=== PATIENT | female | born 1995 | race Caucasian/White ===

== ENCOUNTER 2020-03-30 19:50 | Emergency (ER) | payer OTHER ==
[2020-03-30] MEDS ORDERED: Sodium Chloride 0.9% 1000 ML 1,000 ML IV STA (20:12)
[2020-03-30 20:30] LABS: Absolute Neutrophil Ct (ANC) 7.02 (1.4-6.9); BASOPHIL % 0.2 % (0.0-0.4); Basophil (Absolute #) 0.02 (0-0.4); Eosinophil % 0.7 % (0.00-5.0); Eosinophil (Absolute #) 0.08 (0-0.5); Hematocrit 37.7 % (35-47); Hemoglobin 12.6 gm/dl (12.0-16.0); Lymphocyte (Absolute #) 2.99 (1.0-4.6); Lymphocytes % 27.9 % (24.0-44.0); Mean Cell Volume 90.4 fl (78-100); Mean Corpuscular Hemoglobin 30.2 pg (26-32); Mean Corpuscular Hgb Concent. 33.4 g/dl (32-36); Mean Platelet Volume 11.2 fl (7.5-11.0); Monocyte (Absolute #) 0.62 (0.0-1.3); Monocytes % 5.8 % (0.0-12.0); Neutrophil % 65.4 % (36.0-66.0); Platelet Count 221 K/mm3 (150-450); Red Blood Count 4.17 M/mm3 (4.1-5.4); White Blood Count 10.7 K/mm3 (4.0-10.5)
[2020-03-30] MEDS ORDERED: Sodium Chloride 0.9% 1000 ML 1,000 ML ONE (20:34)
--- NOTE | 2020-03-30 20:45 | ERPHSYRPT ---
- History of Present Illness Time Seen by Provider: 03/30/20 20:00 Source: patient Exam Limitations: no limitations Patient Subjective Stated Complaint: pt states that she is 6wks , pt states that she talked to her AGENCY SERVICE REPRESENTATIVE today, pt states that she felt like she had to have a BM, pt states that she went to the bathroom and felt pressure, pt states that she began to bleed like she does at the begining of her periods, pt states that has had cramping for the past 2 weeks, pt states that she is high risk, pt states that she has hx of PCOS, pt states that this is her first Triage Nursing Assessment: pt ambulated into the er, pt is axo x3, pt denies pain, c/o pressure to katie area and back, states 6 wks , hx PCOS, clear lung sounds, active bowel sounds, denies pain with palpation, vitals wnl Physician History: 24 years old 1 para 0 at almost 6 weeks gestation per LMP presented in [facility] ER with chief complaint of vaginal bleeding prior to arrival. Patient reports she is having off-and-on pelvic cramping for the last 2 weeks and earlier today felt more pressure as if she was going to have a bowel movement and when she went to the bathroom she noticed vaginal bleeding similar to what she is experiencing at the start of her cycle. She called her primary OB Dr. Martinez and is recommended to report in the ER. Patient denies minimal fullness at present and no vaginal bleeding currently. Denies any urinary symptoms. Denies any nausea vomiting. Does not have her first OB ultrasound done yet. Timing/Duration: today, sudden, improved Activites at Onset: rest Quality: cramping, fullness, pressure Onset Location: pelvic pain Pain Radiation: none Severity of Pain-Max: moderate Severity of Pain-Current: mild Prior abdominal problems: none Sexual intercourse history: non-contributory Modifying Factors: Improves With: nothing Associated Symptoms: Allergies/Adverse Reactions: azithromycin Allergy (Mild, Verified 03/30/20 20:27) Home Medications: Metformin HCl 500 mg PO HS 03/30/20 [History] Vits W-Ca,Fe,FA(<1Mg) [] 1 each PO DAILY 03/30/20 [History] Hx Tetanus, Diphtheria Vaccination/Date Given: No (unsure) Hx Influenza Vaccination/Date Given: No Hx Pneumococcal Vaccination/Date Given: No Travel Risk - International Travel Have you traveled outside of the country in past 3 weeks: No - Coronavirus Screening Close contact with a COVID-19 positive Pt in past 14-21 Days: No - Review of Systems Constitutional: No Symptoms Eyes: No Symptoms Ears, Nose, & Throat: No Symptoms Respiratory: No Symptoms Cardiac: No Symptoms Abdominal/Gastrointestinal: No Symptoms Genitourinary Symptoms: , Vaginal Bleeding Musculoskeletal: No Symptoms Skin: No Symptoms Neurological: No Symptoms Psychological: No Symptoms Endocrine: No Symptoms Hematologic/Lymphatic: No Symptoms - Past Medical History Pertinent Past Medical History: Yes Female Reproductive Disorders: Other Other Medical History: PCOS - Past Surgical History Past Surgical History: No - Social History Smoking Status: Never smoker Exposure to second hand smoke: No Drug Use: none Patient Lives Alone: No - Female History Hx Now: Yes - Nursing Vital Signs Nursing Vital Signs: Initial Vital Signs Temperature 98.3 F 03/30/20 20:09 Pulse Rate 113 H 03/30/20 20:09 Respiratory Rate 14 03/30/20 20:09 Blood Pressure 128/97 03/30/20 20:09 O2 Sat by Pulse Oximetry 98 03/30/20 20:09 - Physical Exam General Appearance: no apparent distress, alert, anxiety Eye Exam: PERRL/EOMI, eyes nml inspection Ears, Nose, Throat Exam: normal ENT inspection, pharynx normal Neck Exam: normal inspection, non-tender, supple, full range of motion Respiratory Exam: normal breath sounds, lungs clear Cardiovascular Exam: regular rate/rhythm, normal heart sounds Gastrointestinal/Abdomen Exam: soft, normal bowel sounds, No tenderness Pelvic Exam: not done Back Exam: normal inspection, normal range of motion Extremity Exam: normal inspection, normal range of motion, pelvis stable Neurologic Exam: alert, oriented x 3, cooperative Skin Exam: normal color SpO2 Interpretation: normal SpO2: 98 O2 Delivery: Room Air - Course Nursing assessment & vital signs reviewed: Yes Ordered Tests: Active Orders 24 hr Category Date Time Status IV Insertion STAT Care 03/30/20 20:12 Active OB <14 WKS 1ST GESTATION [US] Stat Exams 03/30/20 20:11 Ordered CBC W DIFF Stat Lab 03/30/20 20:20 Completed CMP Stat Lab 03/30/20 20:20 Completed HCG, Quantitative (Inhouse) Stat Lab 03/30/20 20:20 Completed UA W/RFX UR CULTURE Stat Lab 03/30/20 20:53 Completed Medication Summary Discontinued Medications Generic Name Dose Route Start Last Admin Trade Name Addison PRN Reason Stop Dose Admin Sodium Chloride 1,000 mls @ 999 mls/hr 03/30/20 20:12 03/30/20 21:45 Sodium Chloride 0.9% 1000 Ml IV 03/30/20 21:12 Infused .Q1H1M STA Infusion Sodium Chloride Confirm 03/30/20 20:34 Sodium Chloride 0.9% 1000 Ml Administered 03/30/20 20:35 Dose 1,000 mls @ ud .ROUTE .[facility]-MED ONE Lab/Rad Data: Laboratory Result Diagrams 03/30/20 20:20 03/30/20 20:20 Laboratory Results 03/30/20 03/30/20 03/30/20 Range/Units 20:53 20:20 20:20 WBC (4.0-10.5) K/mm3 RBC (4.1-5.4) M/mm3 Hgb (12.0-16.0) gm/dl Hct (35-47) % MCV (78-100) fl MCH (26-32) pg MCHC (32-36) g/dl RDW (11.5-14.0) % Plt Count (150-450) K/mm3 MPV (7.5-11.0) fl Gran % (36.0-66.0) % Eos # (Auto) (0-0.5) Absolute Lymphs (auto) (1.0-4.6) Absolute Monos (auto) (0.0-1.3) Lymphocytes % (24.0-44.0) % Monocytes % (0.0-12.0) % Eosinophils % (0.00-5.0) % Basophils % (0.0-0.4) % Absolute Granulocytes (1.4-6.9) Basophils # (0-0.4) Sodium 136 L (137-145) mmol/L Potassium 3.7 (3.5-5.1) mmol/L Chloride 105 (98-107) mmol/L Carbon Dioxide 23 (22-30) mmol/L Anion Gap 11.0 (5-15) MEQ/L BUN 10 (7-17) mg/dL Creatinine 0.55 (0.52-1.04) mg/dL Estimated GFR > 60.0 ML/MIN Glucose 126 H (74-106) mg/dL Calcium 9.3 (8.4-10.2) mg/dL Total Bilirubin 0.30 (0.2-1.3) mg/dL AST 20 (14-36) U/L ALT 17 (0-35) U/L Alkaline Phosphatase 59 (38-126) U/L Serum Total Protein 7.2 (6.3-8.2) g/dL Albumin 3.9 (3.5-5.0) g/dL Beta HCG, Quant 7341.9 mIU/ml Urine Color STRAW (YELLOW) Urine Appearance CLEAR (CLEAR) Urine pH 6.0 (5-6) Ur Specific [place] 1.004 (1.005-1.025) Urine Protein NEGATIVE (Negative) Urine Ketones NEGATIVE (NEGATIVE) Urine Blood LARGE (0-5) Naresh/ul Urine Nitrite NEGATIVE (NEGATIVE) Urine Bilirubin NEGATIVE (NEGATIVE) Urine Urobilinogen NEGATIVE (0-1) mg/dL Ur Leukocyte Esterase NEGATIVE (NEGATIVE) Urine WBC (Auto) 0-2 (0-5) /HPF Urine RBC (Auto) 6-10 (0-2) /HPF U Epithel Cells (Auto) RARE (FEW) /HPF Urine Bacteria (Auto) RARE (NEGATIVE) /HPF Urine Culture Reflexed NO (NO) Urine Glucose NEGATIVE (NEGATIVE) mg/dL ABO Group O Rh Factor POSITIVE Antibody Screen NEGATIVE (NEGATIVE) 03/30/20 Range/Units 20:20 WBC 10.7 H (4.0-10.5) K/mm3 RBC 4.17 (4.1-5.4) M/mm3 Hgb 12.6 (12.0-16.0) gm/dl Hct 37.7 (35-47) % MCV 90.4 (78-100) fl MCH 30.2 (26-32) pg MCHC 33.4 (32-36) g/dl RDW 13.0 (11.5-14.0) % Plt Count 221 (150-450) K/mm3 MPV 11.2 H (7.5-11.0) fl Gran % 65.4 (36.0-66.0) % Eos # (Auto) 0.08 (0-0.5) Absolute Lymphs (auto) 2.99 (1.0-4.6) Absolute Monos (auto) 0.62 (0.0-1.3) Lymphocytes % 27.9 (24.0-44.0) % Monocytes % 5.8 (0.0-12.0) % Eosinophils % 0.7 (0.00-5.0) % Basophils % 0.2 (0.0-0.4) % Absolute Granulocytes 7.02 H (1.4-6.9) Basophils # 0.02 (0-0.4) Sodium (137-145) mmol/L Potassium (3.5-5.1) mmol/L Chloride (98-107) mmol/L Carbon Dioxide (22-30) mmol/L Anion Gap (5-15) MEQ/L BUN (7-17) mg/dL Creatinine (0.52-1.04) mg/dL Estimated GFR ML/MIN Glucose (74-106) mg/dL Calcium (8.4-10.2) mg/dL Total Bilirubin (0.2-1.3) mg/dL AST (14-36) U/L ALT (0-35) U/L Alkaline Phosphatase (38-126) U/L Serum Total Protein (6.3-8.2) g/dL Albumin (3.5-5.0) g/dL Beta HCG, Quant mIU/ml Urine Color (YELLOW) Urine Appearance (CLEAR) Urine pH (5-6) Ur Specific [place] (1.005-1.025) Urine Protein (Negative) Urine Ketones (NEGATIVE) Urine Blood (0-5) Naresh/ul Urine Nitrite (NEGATIVE) Urine Bilirubin (NEGATIVE) Urine Urobilinogen (0-1) mg/dL Ur Leukocyte Esterase (NEGATIVE) Urine WBC (Auto) (0-5) /HPF Urine RBC (Auto) (0-2) /HPF U Epithel Cells (Auto) (FEW) /HPF Urine Bacteria (Auto) (NEGATIVE) /HPF Urine Culture Reflexed (NO) Urine Glucose (NEGATIVE) mg/dL ABO Group Rh Factor Antibody Screen (NEGATIVE) - Progress Progress: improved Air Movement: good Progress Note: 03/30/20 22:13 24 years old 1 para 0 at 6 weeks gestation is evaluated for vaginal bleeding prior to arrival. She is given IV fluid and baseline work-up is done. She has hCG checked this afternoon and I rechecked it and there is significant trending up and her ultrasound per tech she has single IUP with some fluttering but it is too early in . She also noticed a small adnexal cyst but no ectopic. Patient is not having any pain. She has a stable H&H and O+ blood group. She is feeling better on reevaluation and no bleeding since in the ER. Discussed with Dr. Ocampo, recommended pelvic rest and outpatient follow-up as scheduled. Discussed signs symptoms of worsening needing return to ER which patient seems understanding. Blood Culture(s) Obtained: No Antibiotics given: No Discussed with : Saul Counseled pt/family regarding: lab results, diagnosis, need for follow-up, rad results - Departure Departure Disposition: Home Clinical Impression: Vaginal bleeding affecting early Condition: Stable Critical Care Time: No Referrals: CHERISE YANEZ NP [Primary Care Provider] - JAYCE OCAMPO DO [Family Provider] - (As scheduled) Instructions: Bleeding With (DC) Additional Instructions: Plenty of fluids. Pelvic rest/avoid sexual activity. Tylenol as needed. Follow-up with your OB for reevaluation as scheduled. Return to ER or call your OB if again have vaginal bleeding cramping etc.
[2020-03-30 20:57] LABS: ALBUMIN 3.9 g/dL (3.5-5.0); ALKALINE PHOSPHATASE 59 U/L (38-126); BLOOD UREA NITROGEN 10 mg/dL (7-17); CHLORIDE 105 mmol/L (98-107); Calcium 9.3 mg/dL (8.4-10.2); Carbon Dioxide 23 mmol/L (22-30); Creatinine 1 0.55 mg/dL (0.52-1.04); Glucose 126 mg/dL (74-106); HCG, Quantitative (Inhouse) 7341.9 mIU/ml; Potassium 3.7 mmol/L (3.5-5.1); SGOT/AST 20 U/L (14-36); SGPT/ALT 17 U/L (0-35); SODIUM 136 mmol/L (137-145); Total Protein 7.2 g/dL (6.3-8.2)
[2020-03-30 20:58] LABS: Appearance CLEAR (CLEAR); Bacteria RARE /HPF (NEGATIVE); Bilirubin NEGATIVE (NEGATIVE); Blood LARGE Ery/ul (0-5); Epithelial Cells RARE /HPF (FEW); Glucose NEGATIVE (NEGATIVE); Ketones NEGATIVE (NEGATIVE); Leukocyte Esterase NEGATIVE (NEGATIVE); Nitrite NEGATIVE (NEGATIVE); Protein,Urine Dip NEGATIVE (Negative); Specific Gravity 1.004 (1.005-1.025); Urobilinogen NEGATIVE mg/dL (0-1); WBC 0-2 /HPF (0-5)
[2020-03-30 21:03] LABS: ABO TYPING O; Antibody Screen NEGATIVE (NEGATIVE); RH TYPING POSITIVE
[2020-03-30 22:15] VITALS: BP 117/71; PULSE 113
[2020-03-30 22:17] VITALS: O2SAT 98
--- NOTE | 2020-03-31 09:54 | XRAY ---
Exam: OB ultrasound less than 14 weeks from 03/30/2020. Comparison: Transabdominal and transvaginal pelvic ultrasound exam from 12/02/2019. Indication: Vaginal bleeding. Findings: Some transvaginal and transabdominal images were obtained. The uterus is anteflexed measuring 8.6 cm in length, 4.75 cm in AP depth, and 4.95 cm in width. A small, normally positioned gestational sac with a peripheral echogenic rim is seen within the upper uterine segment. On the transvaginal images, a small yolk sac is identified. I also note cardiac activity which measures about 107 bpm. This is best seen on the cine loop. An accurate crown-rump length measurement is difficult to obtain because of the of its very small size. It measures approximately 0.17 cm. This is too small for the computer software to recognize. Mean gestational sac diameter of 1.21 cm suggests a gestational age of 5 weeks, 2 days plus or -3 days yielding an estimated due date of 11/28/2020. No fluid is seen within the lower endometrial canal or cervical canal. There is no free fluid within the cul-de-sac. The right ovary measures 2.3 cm x 2.8 cm x 1.9 cm. The left ovary measures 3.5 cm x 2.7 cm x 2.1 cm and is remarkable for a cyst abutting it, the latter measuring 4.0 cm x 2.7 cm x 3.0 cm. This is slightly larger than that noted on 12/02/2019, when it measured 3.7 cm x 2.7 cm x 3.1 cm. Impression: 1. The cine loop images suggest the presence of a tiny intrauterine with a heart rate of 107 bpm. The crown-rump length is too small for the computer software to recognize, although the mean gestational sac diameter suggests a gestational age of 5 weeks, 2 days. Estimated due date is 11/28/2020. 2. I see no abnormal fluid within the lower endometrial canal or cervical canal. 3. 4.0 cm in diameter left ovarian cyst which is slightly larger than that seen on 12/02/2019 when it measured 3.7 cm in maximum diameter. 4. No free intraperitoneal fluid is seen within the cul-de-sac.
== END 2020-03-30 22:23 | disposition home or self-care (01) ==
LOC: ED 19:50
DX: O20.9 Hemorrhage in early pregnancy, unspecified (principal); Z3A.01 Less than 8 weeks gestation of pregnancy
CPT/HCPCS: 36000; 36415; 76801; 80053; 81001; 84702; 85025; 86850; 86900; 86901; 96360; 99284

== ENCOUNTER 2020-11-18 17:00 | Observation (INO) | payer MEDICAID ==
[2020-11-18 18:33] VITALS: BP 126/72; PULSE 96
--- NOTE | 2020-11-19 09:51 | XRAY ---
Exam: OB bioprofile ultrasound with nonstress from 11/18/2020. Comparison: OB ultrasound follow-up from 11/11/2020. Indication: 25-year-old female with reduced movement. Findings: The heart rate measured 142 bpm. The fetus is in a cephalic lie. The amniotic fluid index measured 17.1 cm. This is within normal limits for this stage of . The biophysical profile measured 8 points out of a maximum of 8 points which included assessment of breathing movements, gross body movements, tone, and qualitative amniotic fluid volume. Impression: 1. Biophysical profile scored 8 points out of a maximum of 8 points.
== END 2020-11-18 18:35 | disposition home or self-care (01) ==
LOC: OB 17:00
PROVIDERS: ADMIT Obstetrics & Gynecology; ATTEND Obstetrics & Gynecology
DX: Z34.03 Encounter for supervision of normal first pregnancy, third trimester (principal); Z3A.39 39 weeks gestation of pregnancy
CPT/HCPCS: 59025; 76818; G0378

== ENCOUNTER 2020-11-22 12:48 | Observation (INO) | payer MEDICAID ==
[2020-11-22 13:09] VITALS: BP 133/73; PULSE 104
== END 2020-11-22 13:51 | disposition home or self-care (01) ==
LOC: OB 12:48
PROVIDERS: ADMIT Obstetrics & Gynecology; ATTEND Obstetrics & Gynecology
DX: Z34.03 Encounter for supervision of normal first pregnancy, third trimester (principal); Z3A.39 39 weeks gestation of pregnancy
CPT/HCPCS: 59025; G0378

== ENCOUNTER 2020-11-25 09:10 | Observation (INO) | payer MEDICAID ==
[2020-11-25 09:44] VITALS: PULSE 99
[2020-11-25 10:28] VITALS: BP 132/81
== END 2020-11-25 10:15 | disposition home or self-care (01) ==
LOC: OB 09:10
PROVIDERS: ADMIT Obstetrics & Gynecology; ATTEND Obstetrics & Gynecology
DX: Z34.03 Encounter for supervision of normal first pregnancy, third trimester (principal); Z3A.40 40 weeks gestation of pregnancy
CPT/HCPCS: 59025; G0378

== ENCOUNTER 2022-03-17 09:49 | Emergency (ER) | payer MEDICAID ==
[2022-03-17] MEDS ORDERED: Sodium Chloride 0.9% 1000 ML 1,000 ML IV STA (10:20)
[2022-03-17] MEDS ORDERED: Sodium Chloride 0.9% 1000 ML 1,000 ML ONE (10:28)
[2022-03-17 11:01] LABS: Absolute Neutrophil Ct (ANC) 5.41 x10^3/uL (1.4-6.9); Basophil (Absolute #) 0.02 x10^3/uL (0-0.4); Eosinophil % 0.9 % (0.00-5.0); Eosinophil (Absolute #) 0.07 x10^3/uL (0-0.5); Hematocrit 35.2 % (35-47); Hemoglobin 12.2 g/dL (12.0-16.0); Lymphocyte (Absolute #) 1.78 x10^3/uL (1.0-4.6); Lymphocytes % 23.2 % (24.0-44.0); Mean Cell Volume 86.5 fL (78-100); Mean Corpuscular Hgb Concent. 34.7 g/dL (32-36); Mean Platelet Volume 11.5 fL (7.5-11.0); Monocyte (Absolute #) 0.36 x10^3/uL (0.0-1.3); Monocytes % 4.7 % (0.0-12.0); Neutrophil % 70.4 % (36.0-66.0); Platelet Count 199 x10^3/uL (150-450); Red Blood Count 4.07 x10^6/uL (4.1-5.4); Red Cell Distribution Width 12.7 % (11.5-14.0); White Blood Count 7.7 x10^3/uL (4.0-10.5)
--- NOTE | 2022-03-17 11:33 | XRAY ---
Indication: 12 week gestational bleeding. Two-dimensional transvaginal early OB ultrasound performed. Comparison: February 08, 2022. Again single intrauterine with gestational sac with single pole. Mean sac diameter is 5.31 cm corresponding to 11 weeks 5 days. Mean crown-rump length is 5.82 sonic corresponding to 12 weeks 2 days. heart rate 154 BPM. No abnormal subchorionic fluid. Cervix is closed measuring 4.5 cm in length. Impression: Again single viable intrauterine measuring 12 weeks 0 days. Normal progression of . No new/acute abnormalities.
[2022-03-17 11:39] LABS: ALBUMIN 3.3 g/dL (3.5-5.0); ALKALINE PHOSPHATASE 67 U/L (38-126); ANION GAP 14.4 MEQ/L (5-15); BLOOD UREA NITROGEN 7 mg/dL (7-17); CHLORIDE 104 mmol/L (98-107); Calcium 9.1 mg/dL (8.4-10.2); Carbon Dioxide 21 mmol/L (22-30); Creatinine 1 0.39 mg/dL (0.52-1.04); EST GLOMERULAR FILTRATION RATE > 60.0 ML/MIN; Glucose 96 mg/dL (74-106); Potassium 4.2 mmol/L (3.5-5.1); SGOT/AST 17 U/L (14-36); SGPT/ALT 15 U/L (0-35); SODIUM 136 mmol/L (137-145); Total Protein 6.1 g/dL (6.3-8.2)
[2022-03-17 11:53] LABS: ABO TYPING O; Antibody Screen NEGATIVE (NEGATIVE); RH TYPING POSITIVE
--- NOTE | 2022-03-17 12:00 | ERPHSYRPT ---
- History of Present Illness Time Seen by Provider: 03/17/22 10:09 Source: patient Exam Limitations: no limitations Patient Subjective Stated Complaint: pt here for cramping and bleeding since last night,she is 12 weeks ,. she has been bleeding off and on for 3 wee ks Triage Nursing Assessment: pt alert, walked in, resp easy, skin w/d/p,.face mask in place,, abd soft Physician History: 26-year-old 2 para 1 at 12 weeks gestation presented in the ER with pelvic cramping since yesterday with bright vaginal bleeding. Mild to moderate cramping without any significant aggravating or relieving factors. Denies any urinary symptoms. No fever or chills reported. Timing/Duration: yesterday, intermittent, gradual onset, worse Activites at Onset: sleep Quality: cramping Onset Location: pelvic pain Pain Radiation: none Severity of Pain-Max: moderate Severity of Pain-Current: mild Prior abdominal problems: none Sexual intercourse history: non-contributory Modifying Factors: Improves With: nothing Associated Symptoms: , lower back pain Allergies/Adverse Reactions: azithromycin Allergy (Mild, Verified 03/17/22 10:02) Home Medications: Vits W-Ca,Fe,FA(<1Mg) [] 1 each PO DAILY 03/30/20 [History] Aspirin 81 mg PO DAILY 11/18/20 [History] Doxylamine Succinate [Unisom] 25 mg PO DAILY 11/18/20 [History] Pyridoxine HCl (Vitamin B6) [Vitamin B-6] 25 mg PO TID 11/18/20 [History] Hx Tetanus, Diphtheria Vaccination/Date Given: No (unsure) Hx Influenza Vaccination/Date Given: No Hx Pneumococcal Vaccination/Date Given: No Travel Risk - International Travel Have you traveled outside of the country in past 3 weeks: No - Coronavirus Screening Are you exhibiting any of the following symptoms?: No - Vaccine Status Have you recieved a Covid-19 vaccination: No - Review of Systems Constitutional: No Symptoms Eyes: No Symptoms Ears, Nose, & Throat: No Symptoms Respiratory: No Symptoms Cardiac: No Symptoms Abdominal/Gastrointestinal: No Symptoms Genitourinary Symptoms: Vaginal Bleeding Musculoskeletal: No Symptoms Neurological: No Symptoms Psychological: No Symptoms Endocrine: No Symptoms Hematologic/Lymphatic: No Symptoms - Past Medical History Pertinent Past Medical History: Yes Female Reproductive Disorders: Other Other Medical History: PCOS - Past Surgical History Past Surgical History: No - Social History Smoking Status: Never smoker Exposure to second hand smoke: No Drug Use: none Patient Lives Alone: No - Female History Hx Last Menstrual Period: december 18 Hx Now: Yes Expected Date of Delivery: 09/29/22 - Nursing Vital Signs Nursing Vital Signs: Initial Vital Signs Temperature 97.4 F 03/17/22 09:57 Pulse Rate 89 03/17/22 09:57 Respiratory Rate 16 03/17/22 09:57 Blood Pressure 153/104 03/17/22 09:57 O2 Sat by Pulse Oximetry 97 03/17/22 09:57 Pain Scale Pain Intensity 5 - Physical Exam General Appearance: no apparent distress, alert Eye Exam: PERRL/EOMI Ears, Nose, Throat Exam: normal ENT inspection Neck Exam: normal inspection, full range of motion Respiratory Exam: normal breath sounds, lungs clear Cardiovascular Exam: regular rate/rhythm, normal heart sounds Gastrointestinal/Abdomen Exam: soft, normal bowel sounds, No tenderness, No guarding Pelvic Exam: not done Back Exam: normal inspection, normal range of motion Extremity Exam: normal inspection, normal range of motion Neurologic Exam: alert, oriented x 3, cooperative Skin Exam: normal color SpO2 Interpretation: normal SpO2: 97 O2 Delivery: Room Air Ordered Tests: Active Orders 24 hr Category Date Time Status IV Insertion STAT Care 03/17/22 10:20 Active OB <14 WKS 1ST GESTATION [US] Stat Exams 03/17/22 10:20 Completed CBC W DIFF Stat Lab 03/17/22 10:35 Completed CMP Stat Lab 03/17/22 10:35 Completed CULTURE,URINE Stat Lab 03/17/22 12:25 Received UA W/RFX CULTURE Stat Lab 03/17/22 12:25 Completed Medication Summary Discontinued Medications Generic Name Dose Route Start Last Admin Trade Name Freq PRN Reason Stop Dose Admin Sodium Chloride 1,000 mls @ 999 mls/hr 03/17/22 10:20 03/17/22 12:25 Sodium Chloride 0.9% 1000 Ml IV 03/17/22 11:20 Infused .Q1H1M STA Infusion Sodium Chloride Confirm 03/17/22 10:28 Sodium Chloride 0.9% 1000 Ml Administered 03/17/22 10:29 Dose 1,000 mls @ ud .ROUTE .[facility]-MED ONE Lab/Rad Data: Laboratory Result Diagrams 03/17/22 10:35 03/17/22 10:35 Laboratory Results 03/17/22 03/17/22 03/17/22 Range/Units 12:25 11:07 10:35 WBC (4.0-10.5) x10^3/uL RBC (4.1-5.4) x10^6/uL Hgb (12.0-16.0) g/dL Hct (35-47) % MCV (78-100) fL MCH (26-32) pg MCHC (32-36) g/dL RDW (11.5-14.0) % Plt Count (150-450) x10^3/uL MPV (7.5-11.0) fL Gran % (36.0-66.0) % Immature Gran % (Auto) (0.00-0.4) % Nucleat RBC Rel Count (0.00-0.1) % Eos # (Auto) (0-0.5) x10^3/uL Immature Gran # (Auto) (0.00-0.03) x10^3u/L Absolute Lymphs (auto) (1.0-4.6) x10^3/uL Absolute Monos (auto) (0.0-1.3) x10^3/uL Absolute Nucleated RBC (0.00-0.01) x10^3u/L Lymphocytes % (24.0-44.0) % Monocytes % (0.0-12.0) % Eosinophils % (0.00-5.0) % Basophils % (0.0-0.4) % Absolute Granulocytes (1.4-6.9) x10^3/uL Basophils # (0-0.4) x10^3/uL Sodium 136 L (137-145) mmol/L Potassium 4.2 (3.5-5.1) mmol/L Chloride 104 (98-107) mmol/L Carbon Dioxide 21 L (22-30) mmol/L Anion Gap 14.4 (5-15) MEQ/L BUN 7 (7-17) mg/dL Creatinine 0.39 L (0.52-1.04) mg/dL Estimated GFR > 60.0 ML/MIN Glucose 96 (74-106) mg/dL Calcium 9.1 (8.4-10.2) mg/dL Total Bilirubin 0.30 (0.2-1.3) mg/dL AST 17 (14-36) U/L ALT 15 (0-35) U/L Alkaline Phosphatase 67 (38-126) U/L Serum Total Protein 6.1 L (6.3-8.2) g/dL Albumin 3.3 L (3.5-5.0) g/dL Urinalys Dipstick Clnc MAIN LAB Urine Color YELLOW (YELLOW) Urine Appearance SLIGHTLY CLOUDY (CLEAR) Urine pH 6.5 (5-6) Ur Specific [place] 1.025 (1.005-1.025) POC Urine Protein Conf NEGATIVE (Negative) Urine Ketones NEGATIVE (NEGATIVE) Urine Nitrite NEGATIVE (NEGATIVE) Urine Bilirubin NEGATIVE (NEGATIVE) Urine Urobilinogen 0.2 (0-1) mg/dL Urine Leukocytes NEGATIVE (NEGATIVE) Urine WBC (Auto) 11-15 (0-5) /HPF Urine RBC (Auto) 26-50 (0-2) /HPF U Epithel Cells (Auto) MODERATE (FEW) /HPF Urine Bacteria (Auto) FEW (NEGATIVE) /HPF Urine RBC LARGE (0-5) Naresh/ul Urine Mucus (Auto) SLIGHT (NEGATIVE) /HPF Ur Culture Indicated? YES Urine Glucose NEGATIVE (NEGATIVE) mg/dL ABO Group O Rh Factor POSITIVE Antibody Screen NEGATIVE (NEGATIVE) 03/17/22 Range/Units 10:35 WBC 7.7 (4.0-10.5) x10^3/uL RBC 4.07 L (4.1-5.4) x10^6/uL Hgb 12.2 (12.0-16.0) g/dL Hct 35.2 (35-47) % MCV 86.5 (78-100) fL MCH 30.0 (26-32) pg MCHC 34.7 (32-36) g/dL RDW 12.7 (11.5-14.0) % Plt Count 199 (150-450) x10^3/uL MPV 11.5 H (7.5-11.0) fL Gran % 70.4 H (36.0-66.0) % Immature Gran % (Auto) 0.5 H (0.00-0.4) % Nucleat RBC Rel Count 0.0 (0.00-0.1) % Eos # (Auto) 0.07 (0-0.5) x10^3/uL Immature Gran # (Auto) 0.04 H (0.00-0.03) x10^3u/L Absolute Lymphs (auto) 1.78 (1.0-4.6) x10^3/uL Absolute Monos (auto) 0.36 (0.0-1.3) x10^3/uL Absolute Nucleated RBC 0.00 (0.00-0.01) x10^3u/L Lymphocytes % 23.2 L (24.0-44.0) % Monocytes % 4.7 (0.0-12.0) % Eosinophils % 0.9 (0.00-5.0) % Basophils % 0.3 (0.0-0.4) % Absolute Granulocytes 5.41 (1.4-6.9) x10^3/uL Basophils # 0.02 (0-0.4) x10^3/uL Sodium (137-145) mmol/L Potassium (3.5-5.1) mmol/L Chloride (98-107) mmol/L Carbon Dioxide (22-30) mmol/L Anion Gap (5-15) MEQ/L BUN (7-17) mg/dL Creatinine (0.52-1.04) mg/dL Estimated GFR ML/MIN Glucose (74-106) mg/dL Calcium (8.4-10.2) mg/dL Total Bilirubin (0.2-1.3) mg/dL AST (14-36) U/L ALT (0-35) U/L Alkaline Phosphatase (38-126) U/L Serum Total Protein (6.3-8.2) g/dL Albumin (3.5-5.0) g/dL Urinalys Dipstick Clnc Urine Color (YELLOW) Urine Appearance (CLEAR) Urine pH (5-6) Ur Specific [place] (1.005-1.025) POC Urine Protein Conf (Negative) Urine Ketones (NEGATIVE) Urine Nitrite (NEGATIVE) Urine Bilirubin (NEGATIVE) Urine Urobilinogen (0-1) mg/dL Urine Leukocytes (NEGATIVE) Urine WBC (Auto) (0-5) /HPF Urine RBC (Auto) (0-2) /HPF U Epithel Cells (Auto) (FEW) /HPF Urine Bacteria (Auto) (NEGATIVE) /HPF Urine RBC (0-5) Naresh/ul Urine Mucus (Auto) (NEGATIVE) /HPF Ur Culture Indicated? Urine Glucose (NEGATIVE) mg/dL ABO Group Rh Factor Antibody Screen (NEGATIVE) - Progress Progress: improved Air Movement: good Progress Note: 03/17/22 13:03 26-year-old is evaluated for vaginal bleeding and cramping since last night. She is given fluid bolus, I offered pain medication which she refused. Lab work grossly unremarkable, urinalysis questionable UTI versus contamination. Ultrasound showed single IUP at 12 weeks with heart tone of 154 and of cervical length of 4.5 cm. Discussed patient with primary OB , recommended keeping regular appointment, increase hydration and will culture urine and hold off on antibiotics until culture is back. Plan discussed with patient and also symptoms/signs of worsening needing return to ER which she seems understanding. Blood Culture(s) Obtained: No Antibiotics given: No Discussed with DrBernard: Saul Counseled pt/family regarding: lab results, diagnosis, need for follow-up, rad results - Departure Departure Disposition: Home Clinical Impression: Vaginal bleeding affecting early Condition: Stable Critical Care Time: No Referrals: CHERISE YANEZ NP [Primary Care Provider] - Follow up/PCP as directed JAYCE PADILLA DO [ACTIVE STAFF] - Follow up/PCP as directed Instructions: Bleeding in Early (DC) Additional Instructions: Drink plenty of fluids to keep yourself well-hydrated. Follow-up with your OB for reevaluation as scheduled. Return to ER for worsening bleeding, cramping etc.
[2022-03-17 12:23] VITALS: BP 126/69; PULSE 98
[2022-03-17 12:50] LABS: Bacteria FEW /HPF (NEGATIVE); Epithelial Cells MODERATE /HPF (FEW); Mucus SLIGHT /HPF (NEGATIVE); RBC 26-50 /HPF (0-2)
[2022-03-17 12:52] LABS: Appearance SLIGHTLY CLOUDY (CLEAR); Bilirubin NEGATIVE (NEGATIVE); Dipstick done @ ? MAIN LAB; Glucose NEGATIVE (NEGATIVE); Ketones NEGATIVE (NEGATIVE); Nitrite NEGATIVE (NEGATIVE); Ph 6.5 (5-6); Protein,Urine Dip NEGATIVE (Negative); RBC LARGE Ery/ul (0-5); Specific Gravity 1.025 (1.005-1.025); Urine Cultured Indicated? YES; Urobilinogen 0.2 mg/dL (0-1)
[2022-03-17 13:06] VITALS: O2SAT 97
== END 2022-03-17 13:31 | disposition home or self-care (01) ==
LOC: ED 09:49
DX: O20.9 Hemorrhage in early pregnancy, unspecified (principal); Z3A.12 12 weeks gestation of pregnancy; R10.2 Pelvic and perineal pain; Z28.310 Unvaccinated for COVID-19
CPT/HCPCS: 36415; 76801; 80053; 81015; 85025; 86850; 86900; 86901; 87077; 87086; 87186; 96360; 99284

== ENCOUNTER 2022-08-29 11:00 | Observation (INO) | payer MEDICAID ==
[2022-08-29 12:20] LABS: Hematocrit 35.1 % (35-47); Hemoglobin 11.6 g/dL (12.0-16.0); Mean Cell Volume 90.9 fL (78-100); Mean Corpuscular Hemoglobin 30.1 pg (26-32); Platelet Count 182 x10^3/uL (150-450); Red Blood Count 3.86 x10^6/uL (4.1-5.4)
[2022-08-29 12:28] LABS: Appearance CLEAR (CLEAR); Bacteria RARE /HPF (NEGATIVE); Epithelial Cells RARE /HPF (FEW); Mucus SLIGHT /HPF (NEGATIVE)
[2022-08-29 12:29] LABS: Bilirubin NEGATIVE (NEGATIVE); Dipstick done @ ? MAIN LAB; Glucose NEGATIVE (NEGATIVE); Ketones NEGATIVE (NEGATIVE); Nitrite NEGATIVE (NEGATIVE); Protein,Urine Dip 30 (Negative); RBC NEGATIVE Ery/ul (0-5); Specific Gravity 1.025 (1.005-1.025); Urine Cultured Indicated? YES; Urobilinogen 0.2 mg/dL (0-1)
[2022-08-29 12:45] LABS: Creatinine, Urine Random 271.6 mg/dl; Protein Creatinine Ratio, Ran. 0.07 mg/mg (0.0-0.15)
[2022-08-29 12:50] VITALS: O2SAT 98
[2022-08-29 12:54] LABS: INFLUENZA A NEGATIVE (NEGATIVE); INFLUENZA B NEGATIVE (NEGATIVE); RESPIRATORY SYNCTIAL VIRUS NEGATIVE (Negative); SARS-CoV-2 Xpert Express NEGATIVE (NEGATIVE)
[2022-08-29 13:27] VITALS: BP 123/76; PULSE 100
[2022-08-29 13:36] LABS: ALBUMIN 3.5 g/dL (3.5-5.0); ALKALINE PHOSPHATASE 95 U/L (38-126); ANION GAP 9.7 MEQ/L (5-15); BLOOD UREA NITROGEN 6 mg/dL (7-17); CHLORIDE 106 mmol/L (98-107); Calcium 8.4 mg/dL (8.4-10.2); Carbon Dioxide 22 mmol/L (22-30); Creatinine 1 0.45 mg/dL (0.52-1.04); EST GLOMERULAR FILTRATION RATE > 60.0 ML/MIN; Glucose 99 mg/dL (74-106); Potassium 3.9 mmol/L (3.5-5.1); SGOT/AST 20 U/L (14-36); SGPT/ALT 15 U/L (0-35); SODIUM 134 mmol/L (137-145); Total Protein 6.7 g/dL (6.3-8.2)
== END 2022-08-29 14:15 | disposition home or self-care (01) ==
LOC: ED 11:00 → MED SURG 11:49 → EDSTATUS 11:49
PROVIDERS: ADMIT Obstetrics & Gynecology; ATTEND Obstetrics & Gynecology
DX: Z34.83 Encounter for supervision of other normal pregnancy, third trimester (principal); Z3A.35 35 weeks gestation of pregnancy
CPT/HCPCS: 0241U; 36415; 80053; 81015; 82570; 84156; 84550; 85027; 87086; G0378

== ENCOUNTER 2022-09-21 00:08 | Inpatient (IN) | payer MEDICAID ==
[2022-09-21 16:18] LABS: Basophil (Absolute #) 0.01 x10^3/uL (0-0.4); Eosinophil % 0.7 % (0.00-5.0); Eosinophil (Absolute #) 0.06 x10^3/uL (0-0.5); Hematocrit 34.7 % (35-47); Hemoglobin 11.1 g/dL (12.0-16.0); Lymphocyte (Absolute #) 1.48 x10^3/uL (1.0-4.6); Lymphocytes % 18.3 % (24.0-44.0); Mean Corpuscular Hemoglobin 29.4 pg (26-32); Mean Platelet Volume 11.1 fL (7.5-11.0); Monocytes % 6.2 % (0.0-12.0); Neutrophil % 74.1 % (36.0-66.0); Platelet Count 198 x10^3/uL (150-450); Red Blood Count 3.77 x10^6/uL (4.1-5.4); Red Cell Distribution Width 13.1 % (11.5-14.0); White Blood Count 8.1 x10^3/uL (4.0-10.5)
[2022-09-21 17:04] LABS: Amphetamine,Urine NEGATIVE (NEGATIVE); Barbiturate,Urine NEGATIVE (NEGATIVE); Benzodiazepine,Urine NEGATIVE (NEGATIVE); Cocaine,Urine NEGATIVE (NEGATIVE); Methadone,Urine NEGATIVE (NEGATIVE); Opiate,Urine NEGATIVE (NEGATIVE); PCP,Urine NEGATIVE (NEGATIVE); THC,Urine NEGATIVE (NEGATIVE)
[2022-09-21 18:59] LABS: ABO TYPING O; Antibody Screen NEGATIVE (NEGATIVE); RH TYPING POSITIVE
[2022-09-21] MEDS ORDERED: STADOL 2 MG IV PRN (22:13)
[2022-09-22] MEDS: TYLENOL EXTRA STRENGTH 500 MG PO PRN (04:51)
[2022-09-22] MEDS ORDERED: BRETHINE 1 MG/ML SQ PRN (06:00)
[2022-09-22] MEDS ORDERED: FENTANYL 2 MCG-BUPIV 0.125%-NS 250 ML Epidur 250 ML EPIDURAL SCH (06:00)
[2022-09-22] MEDS ORDERED: PITOCIN 30 UNITS/ LR 500 ML 30 UNITS/500 ML PLAST..BAG IV SCH ×2 (06:00→10:00)
[2022-09-22] MEDS ORDERED: Ephedrine Sulfate 50 MG/ML IV PRN (06:00)
[2022-09-22] MEDS ORDERED: Lactated Ringers 1,000 ML IV ONE (06:00)
[2022-09-22] MEDS: Lactated Ringers 1,000 ML IV SCH ×3 (07:09→13:35)
[2022-09-22] MEDS: Zofran 4 MG/2 ML VIAL IV PRN ×2 (09:36→13:36)
[2022-09-22] MEDS ORDERED: TUCKS TP PRN (10:00)
[2022-09-22] MEDS ORDERED: LANSINOH 40 GM TOP PRN (10:00)
[2022-09-22] MEDS ORDERED: XYLOCAINE 1% HCL 20 ML MDV IJ PRN (10:00)
[2022-09-22] MEDS ORDERED: Anucort-HC SUPPOSITORY PR PRN (16:00)
[2022-09-22] MEDS ORDERED: CORTISONE 1% CREAM TP PRN (16:00)
[2022-09-22] MEDS: Dermoplast Spray TP PRN (18:19)
[2022-09-22] MEDS ORDERED: Docusate Sodium 100 MG ONE (22:24)
[2022-09-22] MEDS: Docusate Sodium 100 MG PO SCH (22:25)
[2022-09-23] MEDS: NORCO 5/325 MG PO PRN ×2 (00:05→04:11)
[2022-09-23 05:02] LABS: Absolute Neutrophil Ct (ANC) 7.75 x10^3/uL (1.4-6.9); Basophil (Absolute #) 0.02 x10^3/uL (0-0.4); Eosinophil % 0.8 % (0.00-5.0); Eosinophil (Absolute #) 0.08 x10^3/uL (0-0.5); Hematocrit 33.7 % (35-47); Hemoglobin 10.8 g/dL (12.0-16.0); Lymphocyte (Absolute #) 1.58 x10^3/uL (1.0-4.6); Lymphocytes % 15.6 % (24.0-44.0); Mean Cell Volume 91.8 fL (78-100); Mean Corpuscular Hemoglobin 29.4 pg (26-32); Mean Platelet Volume 11.4 fL (7.5-11.0); Monocyte (Absolute #) 0.64 x10^3/uL (0.0-1.3); Monocytes % 6.3 % (0.0-12.0); Neutrophil % 76.5 % (36.0-66.0); Platelet Count 168 x10^3/uL (150-450); Red Blood Count 3.67 x10^6/uL (4.1-5.4); Red Cell Distribution Width 13.1 % (11.5-14.0); White Blood Count 10.1 x10^3/uL (4.0-10.5)
--- NOTE | 2022-09-23 06:37 | PCM.NOTE ---
Date and Time: 09/23/22 0636 Subjective Assessment: ppd 1 sp pt resting in bed and doing well vss afebrile abd soft uterus; firm lochia; mild a/p sp ppd 1 dc home tomorrow should fu offie in 3 wks OBJECTIVE DATA Vital Signs: Vital Signs - 24 hr Temp Pulse Resp BP BP Pulse Ox 09/23/22 04:00 97.6 F 106 H 20 122/79 98 09/22/22 20:46 98.9 F 107 H 20 140/77 96 09/22/22 19:00 98.5 F 108 H 18 143/67 99 09/22/22 18:30 98.5 F 110 H 18 127/58 100 09/22/22 18:00 98.5 F 95 H 18 138/73 99 09/22/22 17:30 98.5 F 89 18 135/67 99 09/22/22 17:15 98.5 F 93 H 18 136/65 99 09/22/22 17:00 98.5 F 93 H 18 136/65 99 09/22/22 16:30 98.5 F 100 H 18 123/61 99 09/22/22 16:15 98.5 F 115 H 18 139/79 99 09/22/22 16:00 98.5 F 99 H 18 117/68 99 09/22/22 15:45 98.5 F 99 H 18 130/79 99 09/22/22 15:30 98.5 F 102 H 18 135/78 99 09/22/22 15:15 98.5 F 102 H 18 135/78 99 09/22/22 15:00 98.5 F 86 18 110/55 99 09/22/22 14:45 98.5 F 74 18 114/58 99 09/22/22 14:30 98.5 F 77 18 109/56 99 09/22/22 14:15 98.5 F 78 18 111/58 99 09/22/22 14:00 98.5 F 86 18 104/55 99 09/22/22 13:45 98.5 F 86 18 107/59 99 09/22/22 13:30 98.5 F 90 18 115/61 99 09/22/22 13:15 98.9 F 95 H 18 117/62 99 09/22/22 13:00 98.9 F 85 18 115/63 99 09/22/22 12:45 98.9 F 98 H 18 125/72 99 09/22/22 12:30 98.9 F 110 H 18 122/70 99 09/22/22 12:15 98.9 F 86 18 122/64 99 09/22/22 12:00 98.9 F 90 18 116/59 99 09/22/22 11:45 98.9 F 91 H 18 129/73 99 09/22/22 11:30 98.9 F 86 18 123/75 99 09/22/22 11:15 98.9 F 87 18 116/59 99 09/22/22 11:00 98.9 F 90 18 135/83 99 09/22/22 10:45 98.9 F 90 18 132/76 99 09/22/22 10:30 97.5 F 94 H 18 132/82 99 09/22/22 10:00 97.5 F 104 H 18 123/71 99 09/22/22 09:45 97.5 F 98 H 18 136/82 99 09/22/22 09:30 97.5 F 109 H 18 111/52 99 09/22/22 09:15 97.5 F 94 H 18 81/50 99 09/22/22 09:00 97.5 F 90 18 116/72 99 09/22/22 08:45 97.5 F 92 H 18 137/77 99 09/22/22 08:30 97.5 F 86 18 130/83 99 09/22/22 08:15 97.5 F 90 18 131/81 99 09/22/22 08:00 97.5 F 85 18 143/80 99 09/22/22 07:45 97.5 F 85 18 143/80 99 09/22/22 07:30 18 99 09/22/22 07:00 97.7 F 95 H 18 120/85 99 Pain Assessment - Last Documented Pain Intensity [Bilateral 6 Lower] Pain Intensity 0 Pain Scale Used 0-10 Pain Scale Intake and Output: Intake & Output 09/20/22 09/21/22 09/22/22 09/23/22 11:59 11:59 11:59 11:59 Intake Total 2500 1920 Output Total 600 Balance 2500 1320 Weight 136.985 kg Lab Results: Lab Results-Last 24 Hours 12/30/22 Range/Units 04:48 WBC 10.1 (4.0-10.5) x10^3/uL RBC 3.67 L (4.1-5.4) x10^6/uL Hgb 10.8 L (12.0-16.0) g/dL Hct 33.7 L (35-47) % MCV 91.8 (78-100) fL MCH 29.4 (26-32) pg MCHC 32.0 (32-36) g/dL RDW 13.1 (11.5-14.0) % Plt Count 168 (150-450) x10^3/uL MPV 11.4 H (7.5-11.0) fL Gran % 76.5 H (36.0-66.0) % Immature Gran % (Auto) 0.6 H (0.00-0.4) % Nucleat RBC Rel Count 0.0 (0.00-0.1) % Eos # (Auto) 0.08 (0-0.5) x10^3/uL Immature Gran # (Auto) 0.06 H (0.00-0.03) x10^3u/L Absolute Lymphs (auto) 1.58 (1.0-4.6) x10^3/uL Absolute Monos (auto) 0.64 (0.0-1.3) x10^3/uL Absolute Nucleated RBC 0.00 (0.00-0.01) x10^3u/L Lymphocytes % 15.6 L (24.0-44.0) % Monocytes % 6.3 (0.0-12.0) % Eosinophils % 0.8 (0.00-5.0) % Basophils % 0.2 (0.0-0.4) % Absolute Granulocytes 7.75 H (1.4-6.9) x10^3/uL Basophils # 0.02 (0-0.4) x10^3/uL Assessment/Plan (1) Vaginal delivery Current Visit: Yes Status: Acute Code(s): O80 - ENCOUNTER FOR FULL-TERM UNCOMPLICATED DELIVERY
--- NOTE | 2022-09-23 06:40 | PCM.DS ---
Discharge Summary Date of Admission: 09/22/22 07:51 Admitting Physician: JAYCE PADILLA DO Consults: Consults on Case 09/21/22 15:30 Notify Anesthesia Provider PRN 09/22/22 18:51 Navigation ONCE Primary Care Provider: CHERISE YANEZ Allergies Allergies azithromycin Allergy (Mild, Verified 09/21/22 19:13) Hospital Summary - Hospital Course Hospital Course: pt was admitted on sep 21 for cytotec induction with hx of having covid during her and delivered live baby girl without complication on sep 22 after having gone on pitocin in early am. during care did very well able to ambulate and tolerate diet. stable hgb at 10 and at this time stable for discharge on sep 24. all questions answered to her satisfaction and was advised to fu in office in 3 wks for care. - Vitals & Intake/Output Vital Signs: Vital Signs Temperature 97.6 F 09/23/22 04:00 Pulse Rate 106 H 09/23/22 04:00 Respiratory Rate 20 09/23/22 04:00 Blood Pressure 122/79 09/23/22 04:00 O2 Sat by Pulse Oximetry 98 09/23/22 04:00 Intake & Output: Intake & Output 09/20/22 09/21/22 09/22/22 09/23/22 11:59 11:59 11:59 11:59 Intake Total 2500 1920 Output Total 600 Balance 2500 1320 Weight 136.985 kg - Lab Result Diagrams: 09/23/22 04:48 Lab Results-Last 24 Hrs: Lab Results-Last 24 Hours 09/23/22 Range/Units 04:48 WBC 10.1 (4.0-10.5) x10^3/uL RBC 3.67 L (4.1-5.4) x10^6/uL Hgb 10.8 L (12.0-16.0) g/dL Hct 33.7 L (35-47) % MCV 91.8 (78-100) fL MCH 29.4 (26-32) pg MCHC 32.0 (32-36) g/dL RDW 13.1 (11.5-14.0) % Plt Count 168 (150-450) x10^3/uL MPV 11.4 H (7.5-11.0) fL Gran % 76.5 H (36.0-66.0) % Immature Gran % (Auto) 0.6 H (0.00-0.4) % Nucleat RBC Rel Count 0.0 (0.00-0.1) % Eos # (Auto) 0.08 (0-0.5) x10^3/uL Immature Gran # (Auto) 0.06 H (0.00-0.03) x10^3u/L Absolute Lymphs (auto) 1.58 (1.0-4.6) x10^3/uL Absolute Monos (auto) 0.64 (0.0-1.3) x10^3/uL Absolute Nucleated RBC 0.00 (0.00-0.01) x10^3u/L Lymphocytes % 15.6 L (24.0-44.0) % Monocytes % 6.3 (0.0-12.0) % Eosinophils % 0.8 (0.00-5.0) % Basophils % 0.2 (0.0-0.4) % Absolute Granulocytes 7.75 H (1.4-6.9) x10^3/uL Basophils # 0.02 (0-0.4) x10^3/uL Micro Results-Entire Visit: Microbiology 09/22/22 12:20 Urine Culture - Preliminary Catherized NO GROWTH TO DATE Final Diagnosis/Problem List - Final Discharge Diagnosis/Problem (1) Vaginal delivery Current Visit: Yes Status: Acute Code(s): O80 - ENCOUNTER FOR FULL-TERM UNCOMPLICATED DELIVERY - Discharge Disposition: Home, Self-Care Condition: Stable Prescriptions: No Action Vits W-Ca,Fe,FA(<1Mg) [] 1 each PO DAILY Aspirin 81 mg PO DAILY Doxylamine Succinate [Unisom] 12.5 mg PO DAILY Follow up with: CHERISE YANEZ NP [Primary Care Provider] - JAYCE PADILLA DO [ACTIVE STAFF] - 3 weeks (should fu in office in 3 wks)
[2022-09-23 08:02] LABS: HBsAg Screen Negative (Negative)
[2022-09-23] MEDS: MOTRIN 400 MG PO PRN ×3 (08:07→23:32)
[2022-09-23] MEDS: FERREX 150 PO SCH (08:08)
[2022-09-23] MEDS: Docusate Sodium 100 MG PO SCH ×2 (08:08→21:54)
[2022-09-23] MEDS: Dermoplast Spray TP PRN (10:12)
[2022-09-23] MEDS: TYLENOL EXTRA STRENGTH 500 MG PO PRN (21:54)
[2022-09-24] MEDS: TYLENOL EXTRA STRENGTH 500 MG PO PRN ×3 (02:51→16:00)
[2022-09-24] MEDS: MOTRIN 400 MG PO PRN ×2 (07:29→13:18)
[2022-09-24] MEDS: Dermoplast Spray TP PRN (07:45)
[2022-09-24] MEDS: Docusate Sodium 100 MG PO SCH (10:00)
[2022-09-24] MEDS: FERREX 150 PO SCH (10:00)
[2022-09-24] MEDS ORDERED: Adacel Vial IM ONE (10:00)
[2022-09-24 16:42] VITALS: BP 147/89; PULSE 91; O2SAT 97
== END 2022-09-24 17:28 | disposition home or self-care (01) | DRG 807 ==
LOC: OB 07:51 → OBSVTOIN 09-22 07:51
PROVIDERS: ADMIT Obstetrics & Gynecology; ATTEND Obstetrics & Gynecology
PROC: 10E0XZZ Delivery of Products of Conception, External Approach (ICD-10-PCS; principal; 2022-09-22)
PROC: 0HQ9XZZ Repair Perineum Skin, External Approach (ICD-10-PCS; 2022-09-22)
DX: O70.0 First degree perineal laceration during delivery (principal); Z37.0 Single live birth; O69.81X0 Labor and delivery complicated by cord around neck, without compression, not applicable or unspecified; Z3A.39 39 weeks gestation of pregnancy; Z20.828 Contact with and (suspected) exposure to other viral communicable diseases; Z86.16 Personal history of COVID-19
CPT/HCPCS: 36415; 59409; 80307; 85025; 86850; 86900; 86901; 87086; 87340; 90471; 90715; G0378; J2405; J2590; A9270-GY

== ENCOUNTER 2022-09-26 16:52 | Emergency (ER) | payer MEDICAID ==
[2022-09-26 18:10] LABS: Absolute Neutrophil Ct (ANC) 3.94 x10^3/uL (1.4-6.9); Basophil (Absolute #) 0.02 x10^3/uL (0-0.4); Eosinophil % 2.3 % (0.00-5.0); Eosinophil (Absolute #) 0.15 x10^3/uL (0-0.5); Hematocrit 30.9 % (35-47); Hemoglobin 9.8 g/dL (12.0-16.0); Lymphocyte (Absolute #) 1.68 x10^3/uL (1.0-4.6); Lymphocytes % 26.1 % (24.0-44.0); Mean Cell Volume 91.4 fL (78-100); Mean Corpuscular Hgb Concent. 31.7 g/dL (32-36); Mean Platelet Volume 11.3 fL (7.5-11.0); Monocyte (Absolute #) 0.53 x10^3/uL (0.0-1.3); Monocytes % 8.2 % (0.0-12.0); Neutrophil % 61.4 % (36.0-66.0); Platelet Count 200 x10^3/uL (150-450); Red Blood Count 3.38 x10^6/uL (4.1-5.4); White Blood Count 6.4 x10^3/uL (4.0-10.5)
[2022-09-26 18:22] LABS: ALKALINE PHOSPHATASE 86 U/L (38-126); ANION GAP 10.5 MEQ/L (5-15); BLOOD UREA NITROGEN 14 mg/dL (7-17); CHLORIDE 108 mmol/L (98-107); Calcium 8.2 mg/dL (8.4-10.2); Carbon Dioxide 23 mmol/L (22-30); Creatinine 1 0.55 mg/dL (0.52-1.04); EST GLOMERULAR FILTRATION RATE > 60.0 ML/MIN; Glucose 94 mg/dL (74-106); Potassium 3.8 mmol/L (3.5-5.1); SGOT/AST 23 U/L (14-36); SGPT/ALT 19 U/L (0-35); SODIUM 138 mmol/L (137-145); Total Protein 5.9 g/dL (6.3-8.2); Uric Acid 4.8 mg/dL (2.6-6.0)
[2022-09-26 18:30] LABS: Appearance CLOUDY (CLEAR); Bilirubin NEGATIVE (NEGATIVE); Glucose NEGATIVE (NEGATIVE); Ketones NEGATIVE (NEGATIVE); Protein,Urine Dip 100 (Negative); RBC LARGE Ery/ul (0-5); Specific Gravity >=1.030 (1.005-1.025); Urobilinogen 0.2 mg/dL (0-1)
[2022-09-26 18:31] LABS: Dipstick done @ ? MAIN LAB; Nitrite POSITIVE (NEGATIVE)
[2022-09-26 18:32] LABS: Bacteria PACKED /HPF (NEGATIVE); Epithelial Cells RARE /HPF (FEW); Mucus MODERATE /HPF (NEGATIVE); RBC >101 /HPF (0-2); Urine Cultured Indicated? YES; WBC 26-50 /HPF (0-5)
--- NOTE | 2022-09-26 18:37 | ERPHSYRPT ---
- History of Present Illness Time Seen by Provider: 09/26/22 17:01 Source: patient Exam Limitations: no limitations Patient Subjective Stated Complaint: C/O High Blood Pressure since 09/24/22. Patient added c/o lower back pain. Pain is constant but has changes in intensity . Triage Nursing Assessment: Patient ambulated back to ED. She is alert and oriented. No SOB. No skin alterations noted to lower back. FRANKS WNL. Skin tone normal. Physician History: 27 years old female day 4 sent in ER from OB for symptoms of preeclampsia. Patient upon discharge had a blood pressure of 148 few days ago and today she came for 48-hour checkup and blood pressure was in 150s and was having mild headache earlier which is improved now. No lower extremity swelling. No abdominal/upper quadrant pain. No visual disturbance. No chest pain palpitations or shortness of breath. Timing/Duration: today Severity: mild, moderate Modifying Factors: Improves With: nothing Associated Symptoms: denies symptoms Allergies/Adverse Reactions: azithromycin Allergy (Mild, Verified 09/26/22 17:14) Home Medications: Vits W-Ca,Fe,FA(<1Mg) [] 1 each PO DAILY 03/30/20 [History] Hx Tetanus, Diphtheria Vaccination/Date Given: Yes Hx Influenza Vaccination/Date Given: No Hx Pneumococcal Vaccination/Date Given: No Immunizations Up to Date: Yes Travel Risk - International Travel Have you traveled outside of the country in past 3 weeks: No - Coronavirus Screening Are you exhibiting any of the following symptoms?: No Close contact with a COVID-19 positive Pt in past 14-21 Days: No - Vaccine Status Have you recieved a Covid-19 vaccination: No - Review of Systems Constitutional: No Symptoms Eyes: No Symptoms Ears, Nose, & Throat: No Symptoms Respiratory: No Symptoms Cardiac: No Symptoms Abdominal/Gastrointestinal: No Symptoms Genitourinary Symptoms: No Symptoms Musculoskeletal: Back Pain Skin: No Symptoms Neurological: No Symptoms Psychological: No Symptoms Endocrine: No Symptoms Hematologic/Lymphatic: No Symptoms Immunological/Allergic: No Symptoms - Past Medical History Pertinent Past Medical History: Yes Neurological History: No Pertinent History ENT History: No Pertinent History Cardiac History: No Pertinent History Respiratory History: Asthma, Other Endocrine Medical History: No Pertinent History Musculoskeletal History: No Pertinent History GI Medical History: No Pertinent History History: No Pertinent History Psycho-Social History: No Pertinent History Female Reproductive Disorders: No Pertinent History Other Medical History: PCOS, Kidney stones, COVID-19 in August 2022 - Past Surgical History Past Surgical History: No Neuro Surgical History: No Pertinent History Cardiac: No Pertinent History Respiratory: No Pertinent History Gastrointestinal: No Pertinent History Genitourinary: No Pertinent History Musculoskeletal: No Pertinent History Female Surgical History: No Pertinent History Other Surgical History: [place] teeth removal - Social History Smoking Status: Never smoker Exposure to second hand smoke: No Drug Use: none Patient Lives Alone: No - Female History Hx Now: No - Nursing Vital Signs Nursing Vital Signs: Initial Vital Signs Temperature 97.9 F 09/26/22 17:16 Pulse Rate 88 09/26/22 17:16 Respiratory Rate 18 09/26/22 17:16 Blood Pressure 164/101 09/26/22 17:16 O2 Sat by Pulse Oximetry 100 09/26/22 17:16 Pain Scale Pain Intensity 4 - Physical Exam General Appearance: no apparent distress, alert Eye Exam: PERRL/EOMI, eyes nml inspection Ears, Nose, Throat Exam: normal ENT inspection Neck Exam: normal inspection, non-tender, supple, full range of motion Respiratory Exam: normal breath sounds, lungs clear Cardiovascular Exam: regular rate/rhythm, normal heart sounds Gastrointestinal/Abdomen Exam: soft, normal bowel sounds, No tenderness Extremity Exam: normal inspection, normal range of motion Neurologic Exam: alert, oriented x 3, cooperative, mar[employer] manager II-XII nml as tested, normal mood/affect, nml cerebellar function, sensation nml, No motor deficits Skin Exam: normal color SpO2 Interpretation: normal SpO2: 100 O2 Delivery: Room Air Ordered Tests: Active Orders 24 hr Category Date Time Status IV Insertion STAT Care 09/26/22 18:30 Active CBC W DIFF Stat Lab 09/26/22 17:15 Completed CMP Stat Lab 09/26/22 17:15 Completed CULTURE,URINE Stat Lab 09/26/22 17:48 Received LDH-LACTATE DEHYDROGENASE Stat Lab 09/26/22 17:15 Completed UA W/RFX CULTURE Stat Lab 09/26/22 17:48 Completed Uric Acid Stat Lab 09/26/22 17:15 Completed Medication Summary Generic Name Dose Route Start Last Admin Trade Name Freq PRN Reason Stop Dose Admin Cephalexin HCl 500 mg 09/26/22 19:23 Cephalexin Mh500 Mg Capsule PO 09/26/22 19:24 STAT ONE Nifedipine 30 mg 09/27/22 10:00 09/26/22 19:16 Nifedipine Xl 30 Mg Tablet.Sa PO 10/27/22 09:59 30 mg DAILY TANGELA Administration Discontinued Medications Generic Name Dose Route Start Last Admin Trade Name Addison PRN Reason Stop Dose Admin Nifedipine Confirm 09/26/22 19:11 Nifedipine Xl 30 Mg Tablet.Sa Administered 09/26/22 19:12 Dose 30 mg PO .ST-MED ONE Lab/Rad Data: Laboratory Result Diagrams 09/26/22 17:15 09/26/22 17:15 Laboratory Results 09/26/22 09/26/22 09/26/22 Range/Units 17:48 17:15 17:15 WBC (4.0-10.5) x10^3/uL RBC (4.1-5.4) x10^6/uL Hgb (12.0-16.0) g/dL Hct (35-47) % MCV (78-100) fL MCH (26-32) pg MCHC (32-36) g/dL RDW (11.5-14.0) % Plt Count (150-450) x10^3/uL MPV (7.5-11.0) fL Gran % (36.0-66.0) % Immature Gran % (Auto) (0.00-0.4) % Nucleat RBC Rel Count (0.00-0.1) % Eos # (Auto) (0-0.5) x10^3/uL Immature Gran # (Auto) (0.00-0.03) x10^3u/L Absolute Lymphs (auto) (1.0-4.6) x10^3/uL Absolute Monos (auto) (0.0-1.3) x10^3/uL Absolute Nucleated RBC (0.00-0.01) x10^3u/L Lymphocytes % (24.0-44.0) % Monocytes % (0.0-12.0) % Eosinophils % (0.00-5.0) % Basophils % (0.0-0.4) % Absolute Granulocytes (1.4-6.9) x10^3/uL Basophils # (0-0.4) x10^3/uL Sodium 138 (137-145) mmol/L Potassium 3.8 (3.5-5.1) mmol/L Chloride 108 H (98-107) mmol/L Carbon Dioxide 23 (22-30) mmol/L Anion Gap 10.5 (5-15) MEQ/L BUN 14 (7-17) mg/dL Creatinine 0.55 (0.52-1.04) mg/dL Estimated GFR > 60.0 ML/MIN Glucose 94 (74-106) mg/dL Uric Acid 4.8 (2.6-6.0) mg/dL Calcium 8.2 L (8.4-10.2) mg/dL Total Bilirubin 0.20 (0.2-1.3) mg/dL AST 23 (14-36) U/L ALT 19 (0-35) U/L Alkaline Phosphatase 86 (38-126) U/L Lactate Dehydrogenase 210 (120-246) U/L Serum Total Protein 5.9 L (6.3-8.2) g/dL Albumin 3.0 L (3.5-5.0) g/dL Urinalys Dipstick Clnc MAIN LAB Urine Color YELLOW (YELLOW) Urine Appearance CLOUDY A (CLEAR) Urine pH 6.0 (5-6) Ur Specific [place] >=1.030 A (1.005-1.025) POC Urine Protein Conf 100 A (Negative) Urine Ketones NEGATIVE (NEGATIVE) Urine Nitrite POSITIVE A (NEGATIVE) Urine Bilirubin NEGATIVE (NEGATIVE) Urine Urobilinogen 0.2 (0-1) mg/dL Urine Leukocytes SMALL A (NEGATIVE) Urine WBC (Auto) 26-50 A (0-5) /HPF Urine RBC (Auto) >101 A (0-2) /HPF U Epithel Cells (Auto) RARE (FEW) /HPF Urine Bacteria (Auto) PACKED A (NEGATIVE) /HPF Urine RBC LARGE A (0-5) Naresh/ul Urine Mucus (Auto) MODERATE A (NEGATIVE) /HPF Ur Culture Indicated? YES Urine Glucose NEGATIVE (NEGATIVE) mg/dL 09/26/22 Range/Units 17:15 WBC 6.4 (4.0-10.5) x10^3/uL RBC 3.38 L (4.1-5.4) x10^6/uL Hgb 9.8 L (12.0-16.0) g/dL Hct 30.9 L (35-47) % MCV 91.4 (78-100) fL MCH 29.0 (26-32) pg MCHC 31.7 L (32-36) g/dL RDW 13.0 (11.5-14.0) % Plt Count 200 (150-450) x10^3/uL MPV 11.3 H (7.5-11.0) fL Gran % 61.4 (36.0-66.0) % Immature Gran % (Auto) 1.7 H (0.00-0.4) % Nucleat RBC Rel Count 0.0 (0.00-0.1) % Eos # (Auto) 0.15 (0-0.5) x10^3/uL Immature Gran # (Auto) 0.11 H (0.00-0.03) x10^3u/L Absolute Lymphs (auto) 1.68 (1.0-4.6) x10^3/uL Absolute Monos (auto) 0.53 (0.0-1.3) x10^3/uL Absolute Nucleated RBC 0.00 (0.00-0.01) x10^3u/L Lymphocytes % 26.1 (24.0-44.0) % Monocytes % 8.2 (0.0-12.0) % Eosinophils % 2.3 (0.00-5.0) % Basophils % 0.3 (0.0-0.4) % Absolute Granulocytes 3.94 (1.4-6.9) x10^3/uL Basophils # 0.02 (0-0.4) x10^3/uL Sodium (137-145) mmol/L Potassium (3.5-5.1) mmol/L Chloride (98-107) mmol/L Carbon Dioxide (22-30) mmol/L Anion Gap (5-15) MEQ/L BUN (7-17) mg/dL Creatinine (0.52-1.04) mg/dL Estimated GFR ML/MIN Glucose (74-106) mg/dL Uric Acid (2.6-6.0) mg/dL Calcium (8.4-10.2) mg/dL Total Bilirubin (0.2-1.3) mg/dL AST (14-36) U/L ALT (0-35) U/L Alkaline Phosphatase (38-126) U/L Lactate Dehydrogenase (120-246) U/L Serum Total Protein (6.3-8.2) g/dL Albumin (3.5-5.0) g/dL Urinalys Dipstick Clnc Urine Color (YELLOW) Urine Appearance (CLEAR) Urine pH (5-6) Ur Specific [place] (1.005-1.025) POC Urine Protein Conf (Negative) Urine Ketones (NEGATIVE) Urine Nitrite (NEGATIVE) Urine Bilirubin (NEGATIVE) Urine Urobilinogen (0-1) mg/dL Urine Leukocytes (NEGATIVE) Urine WBC (Auto) (0-5) /HPF Urine RBC (Auto) (0-2) /HPF U Epithel Cells (Auto) (FEW) /HPF Urine Bacteria (Auto) (NEGATIVE) /HPF Urine RBC (0-5) Naresh/ul Urine Mucus (Auto) (NEGATIVE) /HPF Ur Culture Indicated? Urine Glucose (NEGATIVE) mg/dL - Progress Progress: improved Progress Note: 09/26/22 19:24 27 years old is evaluated for preeclampsia. Patient is day 4 vaginal delivery with blood pressure in 150s earlier at home. She has no visual symptoms, no abdominal pain. No edema in the lower extremities. She has appropriate vaginal bleeding for . She has normal white count, normal liver enzyme, uric acid and LDH. She does have UTI. Blood pressure was in 140s earlier and then it increased again to 160s. Patient although is asymptomatic. I discussed with Dr. Ocampo, recommended Procardia and treating UTI and outpatient follow-up. Also recommended patient to keep a log and follow -up with his office. Patient is counseled about medications use and amount of discharge in the breastmilk and she agree with using it. Discussed with : Saul Counseled pt/family regarding: lab results, diagnosis, need for follow-up - Departure Departure Disposition: Home Clinical Impression: hypertension, Acute UTI Condition: Stable Critical Care Time: No Referrals: CHERISE YANEZ, [employer] [Primary Care Provider] - Follow Up with PCP/3 days JAYCE OCAMPO DO [ACTIVE STAFF] - Follow up/PCP as directed (1-2 days for reevaluation) Instructions: Preeclampsia (DC), Urinary Tract Infection, Adult (DC) Additional Instructions: Monitor your blood pressure regularly, keep a log and follow-up with your OB for reevaluation. Take Tylenol as needed for pain. Return to ER for headache, visual disturbance, abdominal pain, swelling lower extremities etc. Follow-up preeclampsia instructions and return for any worsening. Prescriptions: Cephalexin Mh 500 mg [Keflex 500 mg] 500 mg PO TID #21 cap Nifedipine [Procardia Xl] 30 mg PO DAILY 15 Days #15 tablet
[2022-09-26] MEDS ORDERED: Adalat CC 30 MG TABLET PO ONE (19:11)
[2022-09-26] MEDS ORDERED: KEFLEX 500 MG PO ONE (19:23)
[2022-09-26] MEDS ORDERED: KEFLEX 500 MG ONE (19:34)
[2022-09-26 19:39] VITALS: BP 142/100; PULSE 80; O2SAT 98
[2022-09-27] MEDS ORDERED: Adalat CC 30 MG TABLET PO SCH (10:00)
== END 2022-09-26 19:45 | disposition home or self-care (01) ==
LOC: ED 16:52
DX: O16.5 Unspecified maternal hypertension, complicating the puerperium (principal); O86.20 Urinary tract infection following delivery, unspecified; N39.0 Urinary tract infection, site not specified; Z28.310 Unvaccinated for COVID-19; Z86.16 Personal history of COVID-19
CPT/HCPCS: 36000; 36415; 80053; 81015; 83615; 84550; 85025; 87077; 87086; 87186; 99283; A9270-GY

== ENCOUNTER 2022-09-27 22:24 | Emergency (ER) | payer MEDICAID ==
[2022-09-27] MEDS ORDERED: Adalat CC 30 MG TABLET PO STA (22:52)
--- NOTE | 2022-09-27 23:03 | ERPHSYRPT ---
- History of Present Illness Time Seen by Provider: 09/27/22 22:29 Source: patient Exam Limitations: no limitations Patient Subjective Stated Complaint: pt states "I called Dr. Ocampo and he said to come to the er to have my blood pressure checked. The bottom number is still high." Triage Nursing Assessment: pt ambulated into the er; pt is axo x4; c/o htn; pt states 2/10 pain to head; b/p 154/109; clear heart tone; strong tom radial pulses; skin PDW Physician History: 27 years old day 5 presented in the ER with elevated blood pressure which was in 150s systolic and 110s diastolic around 9 PM. She took Procardia around 8 PM. Denies any visual disturbance, belly pain, severe headache, swelling in extremities, feeling dizzy lightheaded etc. patient was seen in the ER yesterday and had negative work-up for preeclampsia. Allergies/Adverse Reactions: azithromycin Allergy (Mild, Verified 09/27/22 22:39) Home Medications: Vits W-Ca,Fe,FA(<1Mg) [] 1 each PO DAILY 03/30/20 [History] Hx Tetanus, Diphtheria Vaccination/Date Given: Yes Hx Influenza Vaccination/Date Given: No Hx Pneumococcal Vaccination/Date Given: No Travel Risk - International Travel Have you traveled outside of the country in past 3 weeks: No - Coronavirus Screening Are you exhibiting any of the following symptoms?: No Close contact with a COVID-19 positive Pt in past 14-21 Days: No - Vaccine Status Have you recieved a Covid-19 vaccination: No - Review of Systems Constitutional: No Symptoms Eyes: No Symptoms, No Vision Changes Ears, Nose, & Throat: No Symptoms Respiratory: No Symptoms Cardiac: No Symptoms Abdominal/Gastrointestinal: No Symptoms Genitourinary Symptoms: No Symptoms Musculoskeletal: No Symptoms Neurological: No Symptoms Psychological: No Symptoms Endocrine: No Symptoms Hematologic/Lymphatic: No Symptoms Immunological/Allergic: No Symptoms - Past Medical History Pertinent Past Medical History: Yes Neurological History: No Pertinent History ENT History: No Pertinent History Cardiac History: No Pertinent History Respiratory History: Asthma, Other Endocrine Medical History: No Pertinent History Musculoskeletal History: No Pertinent History GI Medical History: No Pertinent History History: No Pertinent History Psycho-Social History: No Pertinent History Female Reproductive Disorders: No Pertinent History Other Medical History: PCOS, Kidney stones, COVID-19 in August 2022 - Past Surgical History Past Surgical History: No Neuro Surgical History: No Pertinent History Cardiac: No Pertinent History Respiratory: No Pertinent History Gastrointestinal: No Pertinent History Genitourinary: No Pertinent History Musculoskeletal: No Pertinent History Female Surgical History: No Pertinent History Other Surgical History: [place] teeth removal - Social History Smoking Status: Never smoker Exposure to second hand smoke: No Drug Use: none Patient Lives Alone: No - Female History Hx Now: No - Nursing Vital Signs Nursing Vital Signs: Initial Vital Signs Temperature 97.2 F 09/27/22 22:39 Pulse Rate 76 09/27/22 22:39 Respiratory Rate 18 09/27/22 22:39 Blood Pressure 154/109 09/27/22 22:39 O2 Sat by Pulse Oximetry 98 09/27/22 22:39 Pain Scale Pain Intensity 2 - Physical Exam General Appearance: no apparent distress, alert, anxiety Eye Exam: PERRL/EOMI, eyes nml inspection Ears, Nose, Throat Exam: normal ENT inspection, TMs normal, pharynx normal, moist mucous membranes Neck Exam: normal inspection, non-tender, supple, full range of motion Respiratory Exam: normal breath sounds, lungs clear Cardiovascular Exam: regular rate/rhythm, normal heart sounds Gastrointestinal/Abdomen Exam: soft, normal bowel sounds, tenderness (Appropriate lower abdominal tenderness) Back Exam: normal inspection, normal range of motion Extremity Exam: normal inspection, normal range of motion Neurologic Exam: alert, oriented x 3, cooperative, floors buffer II-XII nml as tested, nml cerebellar function, nml station & gait, sensation nml, No normal mood/affect (Anxious), No motor deficits Skin Exam: normal color SpO2 Interpretation: normal SpO2: 98 O2 Delivery: Room Air Ordered Tests: Medication Summary Discontinued Medications Generic Name Dose Route Start Last Admin Trade Name Freq PRN Reason Stop Dose Admin Nifedipine 30 mg 09/27/22 22:52 09/27/22 23:06 Nifedipine Xl 30 Mg Tablet.Sa PO 09/27/22 22:53 30 mg ONCE STA Administration - Progress Progress: improved, re-examined Progress Note: 09/27/22 23:00 27 years old is evaluated for hypertension/preeclampsia. Patient has a full work-up done yesterday and was negative for preeclampsia, was started on Procardia 30 mg and her blood pressure is not well controlled. She denies any headache, visual disturbance, flashes of light, scotomas, severe headache, swelling, abdominal pain or difficulty breathing. Not in any distress. Lungs bilateral clear to auscultation. Patient though is a little anxious. I have spoken with primary OB Dr. Ocampo and since patient has work-up done yesterday, do not need to repeat work-up and will increase dose of Procardia from 30 daily to 30 twice daily as per up-to-date recommendations. She will be given 1 dose in here and will reevaluate blood pressure afterwards. If blood pressure improves patient be sent home. 09/27/22 23:48 She is given Procardia 30 in here and blood pressure improved in 130s. Recommended taking Procardia twice a day rather than once daily. Discussed signs symptoms of worsening including preeclampsia needing return which she seems understanding. She has appointment with primary care and will discuss with her about blood pressure control. Able for discharge. Counseled pt/family regarding: diagnosis, need for follow-up - Departure Departure Disposition: Home Clinical Impression: hypertension Condition: Stable Critical Care Time: No Referrals: CHERISE YANEZ NP [Primary Care Provider] - Follow up/PCP as directed (Tomorrow as scheduled) Instructions: Malignant Hypertension (DC) Additional Instructions: Monitor your blood pressure regularly, keep a log, keep appointment with primary care. Follow-up with OB if for reevaluation as scheduled. Return to ER if having visual disturbance, seeing flashes of light, scotomas, severe headache, abdominal pain, swelling, chest pain or shortness of breath etc. Take Procardia twice a day rather than once a day.
[2022-09-28] MEDS ORDERED: TYLENOL EXTRA STRENGTH 500 MG PO STA (00:32)
[2022-09-28 00:34] VITALS: BP 148/90; PULSE 73; O2SAT 97
[2022-09-28] MEDS ORDERED: TYLENOL EXTRA STRENGTH 500 MG ONE (00:34)
== END 2022-09-28 00:48 | disposition home or self-care (01) ==
LOC: ED 22:24
DX: O16.5 Unspecified maternal hypertension, complicating the puerperium (principal); Z28.310 Unvaccinated for COVID-19; Z86.16 Personal history of COVID-19
CPT/HCPCS: 99282; A9270-GY